=== PATIENT | female | born 1970 | race Caucasian/White ===

== ENCOUNTER 2023-06-07 06:09 | Day surgery (SDC) | payer OTHER, SELFPAY ==
[2023-06-07] VITALS (8 sets, daily range): BP systolic 102–116; BP diastolic 56–77; BMI 27.5
[2023-06-07] MEDS: NORMOSOL-R 1000 IV (07:14)
[2023-06-07] MEDS: TYLENOL 1000 MG PO (07:14)
[2023-06-07] MEDS: SUBLIMAZE 25 MCG IV ×2 (09:47→10:01)
== END 2023-06-07 11:10 | disposition home or self-care (01) ==
LOC: SDS 06:09
PROVIDERS: ATTENDING PHYSICIAN Urology
DX: T83.190A Other mechanical complication of urinary electronic stimulator device, initial encounter (principal); Y83.1 Surgical operation with implant of artificial internal device as the cause of abnormal reaction of the patient, or of later complication, without mention of misadventure at the time of the procedure; N39.41 Urge incontinence
CPT/HCPCS: 64590; 64561; 72170; 76000; 93005; C1767; C1778; C1787; L8681